=== PATIENT | female | born 1995 | race Caucasian/White ===

== ENCOUNTER 2016-06-13 21:06 | Emergency (ER) | payer OTHER ==
[2016-06-13] MEDS ORDERED: HYDROcod/ACETAM 5/325 MG TABLET PO STA (21:38)
[2016-06-13] MEDS ORDERED: IBUPROFEN 800 MG TABLET PO STA (21:38)
[2016-06-13] MEDS ORDERED: IBUPROFEN 800 MG TABLET PO ONE (21:40)
[2016-06-13] MEDS ORDERED: HYDROcod/ACETAM 5/325 MG TABLET ONE (21:40)
== END 2016-06-13 23:03 | disposition home or self-care (01) ==
DX: M94.0 Chondrocostal junction syndrome [Tietze] (principal); R04.2 Hemoptysis; R03.0 Elevated blood-pressure reading, without diagnosis of hypertension
CPT/HCPCS: 36415; 71020; 85379; 93005; 93010; 99283; 99284; A9270

== ENCOUNTER 2016-11-13 21:14 | Emergency (ER) | payer OTHER ==
[2016-11-13 21:18] VITALS: BP 145/76
[2016-11-13] MEDS ORDERED: CEPHALEXIN 250 MG CAPSULE PO STA (22:01)
[2016-11-13] MEDS ORDERED: SULFAMETH/TRIMETH DS 800/160 MG TABLET PO STA (22:01)
--- NOTE | 2016-11-13 22:03 | ED Physician Documentation ---
PD HPI SKIN - Stated complaint Stated Complaint: FEMALE - Chief complaint Chief Complaint: Wound - History obtained from History obtained from: Patient - History of Present Illness Timing - onset: Today Timing - duration: Days (1) Timing - details: Gradual onset Pain level max: 3 Pain level now: 2 Location: Genitals Quality / character: Painful Improved by: Other (nothing) Worsened by (comment): COMMENT (nothing) Associated symptoms: No: Fever, Myalgias, Joint pain, Headache, Facial swelling , Dyspnea, Abd pain, N/V/D, Urinary sx Contributing factors: No: Exposed to medication, Exposed to food, Exposed to soap / lotion, Exposed to Poison ruth/oak, Insect bite /sting, Recent illness Similar symptoms before: Has not had sx before Recently seen: Not recently seen Review of Systems Constitutional: denies: Fever, Chills GI: denies: Abdominal Pain, Nausea, Vomiting, Diarrhea : denies: Now EGA Musculoskeletal: denies: Neck pain, Back pain PD PAST MEDICAL HISTORY - Past Medical History Past Medical History: No - Past Surgical History Past Surgical History: Yes - Present Medications Home Medications: Ambulatory Orders Medication Instructions Recorded Confirmed Cephalexin [Keflex] 500 mg PO Q6H #28 capsule 11/13/16 Sulfamethox/Trimeth 800/160 1 each PO BID #14 tablet 11/13/16 [Bactrim Ds 800/160] - Allergies Allergies/Adverse Reactions: Allergies Allergy/AdvReac Type Severity Reaction Status Date / Time No Known Drug Allergies Allergy Verified 11/13/16 21:19 - Social History Does the pt smoke?: No Smoking Status: Never smoker Does the pt drink ETOH?: No Does the pt have substance abuse?: No - Immunizations Immunizations are current?: Yes - POLST Patient has POLST: No PD ED PE NORMAL - Vitals Vital signs reviewed: Yes - General General: Alert and oriented X 3, No acute distress - HEENT HEENT: Moist mucous membranes - Cardiac Cardiac: RRR - Respiratory Respiratory: No respiratory distress, Clear bilaterally - Abdomen Abdomen: Soft, Non tender, Non distended - 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 No fluctuance. Mild cellulitis surrounding. ) - Back Back: No CVA TTP - Derm Derm: Warm and dry - Neuro Neuro: Alert and oriented X 3 - Psych Psych: Normal mood, Normal affect Results - Vitals Vitals: Vital Signs - 24 hr 11/13/16 21:17 Temperature 36.2 C L Heart Rate 87 Respiratory 17 Rate Blood Pressure 145/76 H O2 Saturation 100 Oxygen O2 Source Room air PD MEDICAL DECISION MAKING - ED course Complexity details: considered differential, d/w patient ED course: Patient is a 21-year-old female who presents to the emergency department with what appears to be a very early abscess of the right posterior labia. Will place on antibiotics. There is no abscess to drain at this time. She is well- appearing, nontoxic. Afebrile. Patient counseled regarding signs and symptoms for which I believe and urgent re-evaluation would be necessary. Patient with good understanding of and agreement to plan and is comfortable going home at this time This document was made in part using voice recognition software. While efforts are made to proofread this document, sound alike and grammatical errors may occur. Departure - Departure Disposition: 01 Home, Self Care Clinical Impression: Cellulitis of labia Condition: Good Instructions: ED Staph Infec Abx Tx Only Follow-Up: Roseline Doss MD [Primary Care Provider] - Within 3 Days (for wound check) Prescriptions: Sulfamethox/Trimeth 800/160 [Bactrim Ds 800/160] 1 each PO BID #14 tablet Cephalexin [Keflex] 500 mg PO Q6H #28 capsule Comments: Return if you worsen. Take all antibiotics until gone. This may become worse and need to be drained if it does not heal with antibiotics Discharge Date/Time: 11/13/16 22:17
[2016-11-13] MEDS ORDERED: CEPHALEXIN 250 MG CAPSULE PO ONE (22:06)
[2016-11-13] MEDS ORDERED: SULFAMETH/TRIMETH DS 800/160 MG TABLET PO ONE (22:07)
== END 2016-11-13 22:17 | disposition home or self-care (01) ==
LOC: ED 21:14
DX: N76.2 Acute vulvitis (principal)
CPT/HCPCS: 99283; A9270

== ENCOUNTER 2017-01-08 16:33 | Emergency (ER) | payer OTHER ==
[2017-01-08 17:05] VITALS: BP 140/77
--- NOTE | 2017-01-08 17:55 | XRAY Preliminary Report ---
Exam: XR Wrist 4 View RT IMPRESSION: There appears to be dorsal wrist soft tissue swelling. No evidence for acute fracture. [facility] SITE ID: [id number]
--- NOTE | 2017-01-08 17:58 | XRAY Report ---
EXAM: RIGHT WRIST RADIOGRAPHY EXAM DATE: 01/08/2017 05:23 PM. CLINICAL HISTORY: Injury. Fell on outstretched hand injury of right wrist. COMPARISON: None. TECHNIQUE: 4 views. FINDINGS: Bones: Normal. No fractures or bone lesions. Joints: Normal. No subluxations. Soft Tissues: There appears to be dorsal wrist soft tissue swelling. IMPRESSION: There appears to be dorsal wrist soft tissue swelling. No evidence for acute fracture. [facility] Referring Provider Line: [phone] SITE ID: [id number]
--- NOTE | 2017-01-08 18:23 | ED Physician Documentation ---
History of Present Illness - Stated complaint Stated Complaint: RT WRIST PX FELL - Chief complaint Chief Complaint: Ext Problem - Additonal information Additional information: hx from pt 21 y/o f [employer] Review of Systems : denies: Now EGA (denies) Musculoskeletal: reports: Joint pain PD PAST MEDICAL HISTORY - Past Surgical History Past Surgical History: Yes - Present Medications Home Medications: Ambulatory Orders Medication Instructions Recorded Confirmed Cephalexin [Keflex] 500 mg PO Q6H #28 capsule 11/13/16 Sulfamethox/Trimeth 800/160 1 each PO BID #14 tablet 11/13/16 [Bactrim Ds 800/160] - Allergies Allergies/Adverse Reactions: Allergies Allergy/AdvReac Type Severity Reaction Status Date / Time No Known Drug Allergies Allergy Verified 01/08/17 17:05 - Social History Does the pt smoke?: No Smoking Status: Never smoker Does the pt drink ETOH?: No Does the pt have substance abuse?: No - Immunizations Immunizations are current?: Yes - POLST Patient has POLST: No PD ED PE NORMAL - Vitals Vital signs reviewed: Yes - Extremities Extremities: Other (R wrist, sig TTP radial wrist and snuffbox, no deformity, pain with radial/ulnar ROM, MSV inatc but hurts to clench fist) Results - Vitals Vitals: Vital Signs - 24 hr 01/08/17 17:03 Temperature 36.6 C Heart Rate 77 Respiratory 18 Rate Blood Pressure 140/77 H O2 Saturation 100 Oxygen O2 Source Room air - Rads (name of study) wrist Radiology: See rad report PD MEDICAL DECISION MAKING - ED course ED course: neg xray but snuffbox TTP immobilized and rec rpt xray 2 weeks with ENEDELIA Departure - Departure Disposition: 01 Home, Self Care Clinical Impression: Right wrist sprain Qualifiers: Encounter type: initial encounter Qualified Code(s): S63.501A - Unspecified sprain of right wrist, initial encounter Condition: Good Instructions: ED Sprain Wrist Follow-Up: ENEDELIA Corry Romo [Provider Group] Comments: No fracture is seen today - but the scaphoid bone can be fractured and not show up on the intial xrays Please wear the splint for two weeks, then follow up with [facility] orthopedics for a recheck and repeat xrays Motrin and tylneol for pain And please get your blood pressure rechecked - it was high today Forms: Activity restrictions
[2017-01-08] MEDS ORDERED: NAPROXEN 250 MG TABLET PO STA (18:27)
[2017-01-08] MEDS ORDERED: NAPROXEN 250 MG TABLET PO ONE (18:38)
== END 2017-01-08 18:43 | disposition home or self-care (01) ==
LOC: ED 16:33
DX: S63.501A Unspecified sprain of right wrist, initial encounter (principal); W01.0XXA Fall on same level from slipping, tripping and stumbling without subsequent striking against object, initial encounter; Y93.02 Activity, running
CPT/HCPCS: 73110; 99282; A9270

== ENCOUNTER 2017-07-03 22:14 | Emergency (ER) | payer OTHER ==
[2017-07-03] MEDS ORDERED: DOXYCYCLINE 100 MG TABLET PO STA (23:25)
--- NOTE | 2017-07-03 23:27 | ED Physician Documentation ---
History of Present Illness - Stated complaint Stated Complaint: RASH - Chief complaint Chief Complaint: General - History obtained from History obtained from: Patient - History of Present Illness Timing: Other (For months she has been having painful lesions on the upper inner thighs, some of which pop and drain. No fevers. She does not have any axillary lesions.) Review of Systems Constitutional: reports: Reviewed and negative Cardiac: reports: Reviewed and negative Respiratory: reports: Reviewed and negative PD PAST MEDICAL HISTORY - Past Medical History Cardiovascular: None Respiratory: None Neuro: None Endocrine/Autoimmune: None GI: None MOVER HELPER: None : None HEENT: None Psych: None Musculoskeletal: None Derm: None - Past Surgical History Past Surgical History: Yes HEENT: Other - Present Medications Home Medications: Ambulatory Orders Medication Instructions Recorded Confirmed Dicyclomine [Bentyl] 10 mg PO QID PRN #20 capsule 02/20/17 Omeprazole [PriLOSEC] 20 mg PO DAILY #30 capsule 02/20/17 Ondansetron HCl [Zofran] 4 mg PO Q6H PRN #20 tablet 02/20/17 Doxycycline Hyclate 100 mg PO BID #20 tablet 07/03/17 - Allergies Allergies/Adverse Reactions: Allergies Allergy/AdvReac Type Severity Reaction Status Date / Time No Known Drug Allergies Allergy Verified 01/08/17 17:05 - Social History Does the pt smoke?: No Smoking Status: Never smoker Does the pt drink ETOH?: No Does the pt have substance abuse?: No - Immunizations Immunizations are current?: Yes - POLST Patient has POLST: No PD ED PE NORMAL - Vitals Vital signs reviewed: Yes - General General: Alert and oriented X 3, No acute distress - Derm Derm: Other (Exam done with Elia MONTALVO present in chaperoning. She has multiple small spit sebaceous cysts some of which are tender but without obvious infection and nothing that needs incision and drainage to the upper inner thighs.) - Neuro Neuro: Alert and oriented X 3, Normal speech Results - Vitals Vitals: Vital Signs - 24 hr 07/03/17 22:18 Temperature 36.8 C Heart Rate 66 Respiratory 16 Rate Blood Pressure 133/53 H O2 Saturation 99 Oxygen O2 Source Room air Departure - Departure Disposition: 01 Home, Self Care Clinical Impression: Sebaceous cyst Condition: Good Record reviewed to determine appropriate education?: Yes Instructions: ED Cyst Sebaceous Infec IandD Prescriptions: Doxycycline Hyclate 100 mg PO BID #20 tablet Comments: [place] for the multiple sebaceous cysts that are bothering you. Return if worse. Your blood pressure was elevated today on check into the emergency department. This does not mean that you have hypertension, it is a common phenomenon to come to the emergency department and have elevated blood pressure. I recommend that you see your primary care physician within the week to have it rechecked when you are feeling better. Forms: Activity restrictions
[2017-07-03 23:36] VITALS: BP 121/58
== END 2017-07-03 23:33 | disposition home or self-care (01) ==
LOC: ED 22:14
DX: L72.3 Sebaceous cyst (principal); R03.0 Elevated blood-pressure reading, without diagnosis of hypertension
CPT/HCPCS: 99283; A9270

== ENCOUNTER 2017-07-06 17:28 | Emergency (ER) | payer OTHER ==
[2017-07-06 17:44] VITALS: BP 136/70
[2017-07-06] MEDS ORDERED: oxyCOD/ACETAMIN 5 MG/325 MG TABLET PO STA (19:04)
[2017-07-06] MEDS ORDERED: DEXAMETHASONE 10 MG/ML VIAL PO STA (19:04)
[2017-07-06] MEDS ORDERED: LIDOCAINE PATCH 5% TOP STA (19:04)
--- NOTE | 2017-07-06 19:12 | ED Physician Documentation ---
History of Present Illness - Stated complaint Stated Complaint: LOWER BACK PX - Chief complaint Chief Complaint: Back Pain - Additonal information Additional information: hx from pt healthy AD [place] low back pain with int sharp burning pain down ant L leg no leg pain now no injury no fever no recent surgery dental work no IV IM SQ meds drugs no abd pain no numbness including saddle anesthesia no weakness no incontin denies preg Review of Systems Constitutional: denies: Fever, Chills Cardiac: denies: Chest pain / pressure GI: denies: Abdominal Pain : denies: Dysuria, Unable to Void, Incontinent, Hematuria, Now EGA Musculoskeletal: reports: Back pain, Extremity pain Neurologic: denies: Focal weakness, Numbness Endocrine: denies: Easy bruising / bleeding Immunocompromised: denies: Immunocompromised PD PAST MEDICAL HISTORY - Past Medical History Past Medical History: Yes Cardiovascular: None Respiratory: None Neuro: None Endocrine/Autoimmune: None GI: None HEALTHCARE CUSTOMER SERVICE: None : None HEENT: None Psych: None Musculoskeletal: Chronic back pain Derm: None - Past Surgical History Past Surgical History: Yes HEENT: Other - Present Medications Home Medications: Ambulatory Orders Medication Instructions Recorded Confirmed Doxycycline Hyclate 100 mg PO BID #20 tablet 07/03/17 07/06/17 Lidocaine Patch 5% [Lidoderm Patch] 1 each TOP DAILY PRN #10 patch 07/06/17 predniSONE [Deltasone] 20 mg PO [id number] #21 tab 07/06/17 - Allergies Allergies/Adverse Reactions: Allergies Allergy/AdvReac Type Severity Reaction Status Date / Time No Known Drug Allergies Allergy Verified 07/06/17 18:28 - Social History Does the pt smoke?: No Smoking Status: Never smoker Does the pt drink ETOH?: No Does the pt have substance abuse?: No - Immunizations Immunizations are current?: Yes - POLST Patient has POLST: No PD ED PE NORMAL - Vitals Vital signs reviewed: Yes - Neck Neck: Supple, no meningeal sign - Cardiac Cardiac: RRR - Respiratory Respiratory: No respiratory distress, Clear bilaterally - Abdomen Abdomen: Soft, Non tender - Back Back: No spinal TTP (and no erthema warmth swelling) - Derm Derm: Normal color - Extremities Extremities: No deformity - Neuro Neuro: No motor deficit (hip lfex knee ext foot dorsi plantar great toe all 5/5 , nl sendation, no saddle anestheisa, neg SLR, no clonus, patellar DTR 2/4) Results - Vitals Vitals: Vital Signs - 24 hr 07/06/17 17:42 Temperature 36.8 C Heart Rate 70 Respiratory 16 Rate Blood Pressure 136/70 H O2 Saturation 99 Oxygen O2 Source Room air PD MEDICAL DECISION MAKING - ED course ED course: sciatica no red flags explained why imaging not indicated at this time symptomatic tx Departure - Departure Disposition: Home, Self Care Clinical Impression: Sciatica Qualifiers: Laterality: left Qualified Code(s): M54.32 - Sciatica, left side Back pain Qualifiers: Back pain location: low back pain Chronicity: acute Back pain laterality: unspecified Sciatica presence: with sciatica Sciatica laterality: sciatica of left side Qualified Code(s): M54.42 - Lumbago with sciatica, left side Condition: Good Instructions: ED Sciatica Follow-Up: ENEDELIA Romo [Provider Group] Prescriptions: Lidocaine Patch 5% [Lidoderm Patch] 1 each TOP DAILY PRN #10 patch PRN Reason: Pain predniSONE [Deltasone] 20 mg PO [id number] #21 tab Comments: 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
== END 2017-07-06 19:17 | disposition home or self-care (01) ==
LOC: ED 17:28
DX: M54.42 Lumbago with sciatica, left side (principal)
CPT/HCPCS: 99283

== ENCOUNTER 2017-07-29 16:02 | Emergency (ER) | payer OTHER ==
[2017-07-29 16:17] VITALS: BP 146/71
[2017-07-29] MEDS ORDERED: DEXAMETHASONE 10 MG/ML VIAL PO STA (16:19)
--- NOTE | 2017-07-29 16:23 | ED Physician Documentation ---
PD HPI HEENT - Stated complaint Stated Complaint: DE JESUS/VOMITING/SORE THROAT - Chief complaint Chief Complaint: General - History obtained from History obtained from: Patient, Friend - History of Present Illness Timing - onset: How many days ago (5) Timing - duration: Days (5) Timing - details: Gradual onset, Still present Location: Left ear, Throat Improves: Medication Worsens: Swalllowing Associated symptoms: Fever, Congestion, Cough, Other (vomiting and headache) Similar symptoms before: Has not had sx before Recently seen: Not recently seen - Additional information Additional information: 21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 She has developed some nausea and vomiting with this as well. She has been able to hold down some cereal today and fluids. She feels that she improved her fever 2 days ago with a cool rag. Review of Systems Constitutional: reports: Fever Eyes: denies: Decreased vision Ears: reports: Ear pain Nose: reports: Rhinorrhea / runny nose, Congestion Throat: reports: Sore throat Cardiac: denies: Chest pain / pressure, Palpitations Respiratory: reports: Cough. denies: Dyspnea GI: reports: Nausea, Vomiting. denies: Abdominal Pain : denies: Dysuria, Frequency PD PAST MEDICAL HISTORY - Past Medical History Past Medical History: Yes Cardiovascular: None Respiratory: None Neuro: None Endocrine/Autoimmune: None GI: None COMMUNITY DEVELOPMENT COORDINATOR: None : None HEENT: None Psych: None Musculoskeletal: Chronic back pain Derm: None - Past Surgical History Past Surgical History: Yes HEENT: Other - Present Medications Home Medications: Ambulatory Orders Medication Instructions Recorded Confirmed Azithromycin [Zithromax] 250 mg PO DAILY #6 tablet 07/29/17 - Allergies Allergies/Adverse Reactions: Allergies Allergy/AdvReac Type Severity Reaction Status Date / Time No Known Drug Allergies Allergy Verified 07/06/17 18:28 - Social History Does the pt smoke?: No Smoking Status: Never smoker Does the pt drink ETOH?: No Does the pt have substance abuse?: No - Immunizations Immunizations are current?: Yes - POLST Patient has POLST: No PD ED PE NORMAL - Vitals Vital signs reviewed: Yes (hypertensive ) - General General: Alert and oriented X 3, No acute distress, Well developed/nourished - HEENT HEENT: Atraumatic, PERRL, EOMI, Other (There is tympanosclerosis bialterally and some mild inflamation on the left. There is inflamation of the posterior pharynx and ulceration on the right tonsillar pillar. The tonsils themself are 2 + cryptic and exudated. ) - Neck Neck: Supple, no meningeal sign, No bony TTP - Cardiac Cardiac: RRR, No murmur - Respiratory Respiratory: No respiratory distress, Clear bilaterally - Abdomen Abdomen: Soft, Non tender - Back Back: No CVA TTP, No spinal TTP - Derm Derm: Normal color, Warm and dry, No rash - Extremities Extremities: No deformity, No edema - Neuro Neuro: No motor deficit, No sensory deficit Eye Opening: Spontaneous Motor: Obeys Commands Verbal: Oriented GCS Score: 15 - Psych Psych: Normal mood, Normal affect Results - Vitals Vitals: Vital Signs - 24 hr 07/29/17 16:09 Temperature 36.6 C Heart Rate 87 Respiratory 16 Rate Blood Pressure 146/71 H O2 Saturation 100 Oxygen O2 Source Room air - Labs Labs: Laboratory Tests 07/29/17 16:20 Group A Strep Rapid Negative Procedures - IVC sono (time) 1620 Bedside IVC sono: IVC measures (cm) (1.34), Dehydration (minimal dehydration) PD MEDICAL DECISION MAKING - ED course Complexity details: reviewed results, re-evaluated patient, considered differential, d/w patient ED course: 21 y/o female with a sore throat and tonsillitis on exam has a negative rapid strep. She is not dehydrated on interrogation of the IVC and she is administered decadron 10mg PO and we will put her on some zithromax. Departure - Departure Disposition: 01 Home, Self Care Clinical Impression: Acute tonsillitis Qualifiers: Pharyngitis/tonsillitis etiology: unspecified etiology Qualified Code(s): J03.90 - Acute tonsillitis, unspecified Condition: Stable Instructions: ED Tonsillitis Follow-Up: Roseline Doss MD [Primary Care Provider] - Prescriptions: Azithromycin [Zithromax] 250 mg PO DAILY #6 tablet Forms: Activity restrictions Discharge Date/Time: 07/29/17 17:03
[2017-07-29] MEDS ORDERED: CHERRY SYRUP 10 ML UDC PO ONE (16:32)
== END 2017-07-29 17:03 | disposition home or self-care (01) ==
LOC: ED 16:02
DX: J03.90 Acute tonsillitis, unspecified (principal); E86.0 Dehydration
CPT/HCPCS: 87070; 87430; 99283; A9270

== ENCOUNTER 2017-10-09 17:49 | Emergency (ER) | payer OTHER ==
--- NOTE | 2017-10-09 18:56 | ED Physician Documentation ---
PD HPI LOWER EXT INJURY - Stated complaint Stated Complaint: R LEG PX - Chief complaint Chief Complaint: Ext Problem - History obtained from History obtained from: Patient - History of Present Illness PD HPI LOW EXT INJURY LOCATION: Right, Thigh (back of lower thigh pain onset during sports today. Pain with flexion at knee. Hurts to walk. Not hurting at knee itself.) Type of injury: Other (she was reaching for ball playing baseball, and felt a pull/pain in back of right lower thigh.) Where injury occurred: Other (baseball field.) Timing - onset: Today Timing - duration: Hours Timing - details: Abrupt onset, Still present Worsened by: Moving, Palpating, Other (flexion at knee) Associated symptoms: No: Weakness, Numbness, Swelling Contributing factors: No: Anticoagulated, Prior ortho surgery Similar symptoms before: Has not had sx before Recently seen: Not recently seen Review of Systems Constitutional: denies: Fever, Myalgias, Fatigue Nose: denies: Rhinorrhea / runny nose, Congestion Throat: denies: Sore throat Respiratory: denies: Cough GI: denies: Vomiting, Diarrhea Skin: denies: Rash, Lesions Musculoskeletal: denies: Back pain Neurologic: denies: Focal weakness, Numbness PD PAST MEDICAL HISTORY - Past Medical History Past Medical History: Yes Cardiovascular: None Respiratory: None Endocrine/Autoimmune: None GI: None SALES COUNSELOR: None : None HEENT: None Psych: None Musculoskeletal: Chronic back pain Derm: None - Past Surgical History Past Surgical History: Yes HEENT: Other - Present Medications Home Medications: Ambulatory Orders Medication Instructions Recorded Confirmed Ibuprofen [Motrin] 600 mg PO TID #30 tab 10/09/17 Tramadol HCl 50 mg PO Q6H PRN #20 tablet 10/09/17 - Allergies Allergies/Adverse Reactions: Allergies Allergy/AdvReac Type Severity Reaction Status Date / Time No Known Drug Allergies Allergy Verified 07/06/17 18:28 - Social History Does the pt smoke?: No Smoking Status: Never smoker Does the pt drink ETOH?: No Does the pt have substance abuse?: No - Immunizations Immunizations are current?: Yes - POLST Patient has POLST: No PD ED PE NORMAL - Vitals Vital signs reviewed: Yes - General General: Alert and oriented X 3, Well developed/nourished - Back Back: No CVA TTP, No spinal TTP - Derm Derm: Normal color, Warm and dry - Extremities Extremities: Other (right posterior thigh with tenderness in middle portion muscle. Hamstring tendons lower thigh feel intact and not tender. Knee joint itself not tender and no effusion. ) - Neuro Neuro: Alert and oriented X 3, No motor deficit, No sensory deficit, Normal speech Results - Vitals Vitals: Oxygen O2 Source Room air PD MEDICAL DECISION MAKING - ED course Complexity details: considered differential (seems muscle strain. Hamstrings tendons feel okay. Presume upper into muscle belly, likely biceps femoris. ), d/ w patient - Sepsis Event Vital Signs: Oxygen O2 Source Room air Departure - Departure Disposition: Home, Self Care Clinical Impression: Strain of distal biceps femoris tendon Muscle strain of right thigh Qualifiers: Encounter type: initial encounter Qualified Code(s): S76.911A - Strain of unspecified muscles, fascia and tendons at thigh level, right thigh, initial encounter Condition: Stable Record reviewed to determine appropriate education?: Yes Instructions: ED Strain Muscle Ext Follow-Up: SWETA ANSARI MD [Primary Care Provider] - Prescriptions: Ibuprofen [Motrin] 600 mg PO TID #30 tab Tramadol HCl 50 mg PO Q6H PRN #20 tablet PRN Reason: Pain Comments: Knee brace when up and around. He can have it off when resting. Crutches to reduce weightbearing and use of the right thigh muscles. Ibuprofen 2-3 times a day for the next 7-10 days. Add Tylenol or tramadol if needed for pain. Off work for 1-2 days. Follow-up with your primary care or orthopedics in the next several days to week for reevaluation of the injury. He may have torn part of the muscle in the back of the thigh (biceps for Billy) and that could potentially take 3-4 weeks to heal. It may be less severe than that and get better in a week or so. Forms: Activity restrictions Discharge Date/Time: 10/09/17 19:45
[2017-10-09] MEDS ORDERED: IBUPROFEN 600 MG TABLET PO STA (19:12)
[2017-10-09] MEDS ORDERED: HYDROcod/ACETAM 5/325 MG TABLET PO STA (19:12)
[2017-10-09 19:50] VITALS: BP 127/74
== END 2017-10-09 19:45 | disposition home or self-care (01) ==
LOC: ED 17:49
DX: S76.811A Strain of other specified muscles, fascia and tendons at thigh level, right thigh, initial encounter (principal); S39.011A Strain of muscle, fascia and tendon of abdomen, initial encounter; X50.1XXA Overexertion from prolonged static or awkward postures, initial encounter; Y93.64 Activity, baseball; Y92.320 Baseball field as the place of occurrence of the external cause
CPT/HCPCS: 99283; A9270

== ENCOUNTER 2018-01-08 14:46 | Emergency (ER) | payer OTHER ==
[2018-01-08] MEDS ORDERED: LIDOCAINE-EPINEPH-TETRACAINE 3 ML SYRINGE TOP STA (15:26)
--- NOTE | 2018-01-08 15:29 | ED Physician Documentation ---
PD HPI HEENT - Stated complaint Stated Complaint: NOSEBLEEDS - Chief complaint Chief Complaint: Heent - History obtained from History obtained from: Patient - History of Present Illness Timing - onset: How many days ago (3) Timing - duration: Days (3) Timing - details: Now resolved, Waxing and waning Location: Nose Improves: Other (pressure) Worsens: Everything Associated symptoms: Congestion. No: Fever Similar symptoms before: Diagnosis (epistaxis) Recently seen: Not recently seen - Additional information Additional information: 22-year-old female is been having problems with nosebleed for the past 3 days. She has had nosebleeds of last up to 45 minutes today she has had a third episode lasting 30 minutes. She is in here seeking treatment. Review of Systems Constitutional: denies: Fever, Chills, Myalgias Eyes: denies: Decreased vision Ears: denies: Ear pain, Drainage/discharge Nose: reports: Rhinorrhea / runny nose, Congestion, Epistaxis Throat: denies: Sore throat Respiratory: denies: Dyspnea, Cough GI: denies: Vomiting PD PAST MEDICAL HISTORY - Past Medical History Cardiovascular: None Respiratory: None Endocrine/Autoimmune: None GI: None QUALITY SYSTEMS SPECIALIST: None : None HEENT: None Psych: None Musculoskeletal: Chronic back pain Derm: None - Past Surgical History Past Surgical History: Yes HEENT: Other - Present Medications Home Medications: Ambulatory Orders Medication Instructions Recorded Confirmed No Known Home Medications 01/08/18 01/08/18 - Allergies Allergies/Adverse Reactions: Allergies Allergy/AdvReac Type Severity Reaction Status Date / Time No Known Drug Allergies Allergy Verified 01/08/18 14:58 - Social History Does the pt smoke?: No Smoking Status: Never smoker Does the pt drink ETOH?: No Does the pt have substance abuse?: No - Immunizations Immunizations are current?: Yes - POLST Patient has POLST: No PD ED PE NORMAL - Vitals Vital signs reviewed: Yes (hypertensive ) - General General: Alert and oriented X 3, No acute distress, Well developed/nourished - HEENT HEENT: Atraumatic, PERRL, EOMI, Ears normal, Moist mucous membranes, Pharynx benign, Dentition benign, Other (There are engorged veins in auerbachs plexes without active bleeding. ) - Neck Neck: Supple, no meningeal sign, No bony TTP - Cardiac Cardiac: RRR, No murmur - Respiratory Respiratory: No respiratory distress, Clear bilaterally - Derm Derm: Normal color, Warm and dry, No rash - Extremities Extremities: No deformity, No edema - Neuro Neuro: Alert and oriented X 3, events assistant 2-12 intact, No motor deficit, No sensory deficit, Normal speech Eye Opening: Spontaneous Motor: Obeys Commands Verbal: Oriented GCS Score: 15 - Psych Psych: Normal mood, Normal affect Results - Vitals Vitals: Vital Signs - 24 hr 01/08/18 14:55 Temperature 36.8 C Heart Rate 87 Respiratory 16 Rate Blood Pressure 162/90 H O2 Saturation 99 Oxygen O2 Source Room air Procedures - Epistaxis Site: Left, Anterior Preparation: Other (LET) Treatment: Silver Nitrate Other: Observed - no bleeding, Pt tolerated well PD MEDICAL DECISION MAKING - ED course Complexity details: considered differential, d/w patient, d/w family ED course: 22-year-old female with epistaxis from the left Auerbaux plexus is cauterized with silver nitrate with resolution. - Sepsis Event Vital Signs: Vital Signs - 24 hr 01/08/18 14:55 Temperature 36.8 C Heart Rate 87 Respiratory 16 Rate Blood Pressure 162/90 H O2 Saturation 99 Oxygen O2 Source Room air Departure - Departure Disposition: Home, Self Care Clinical Impression: Epistaxis Condition: Stable Instructions: ED Nosebleed Follow-Up: SWETA ANSARI MD [Primary Care Provider] - Forms: Activity restrictions
[2018-01-08 16:34] VITALS: BP 140/77
== END 2018-01-08 16:32 | disposition home or self-care (01) ==
LOC: ED 14:46
DX: R04.0 Epistaxis (principal)
CPT/HCPCS: 99282; 99283